=== PATIENT | female | born 1980 | race Caucasian/White ===

== ENCOUNTER 2016-07-12 15:20 | Outpatient (CLI) | payer OTHER ==
--- NOTE | 2016-07-12 22:13 | DIAGNOSTIC IMAGING REPORT ---
PROCEDURE: MG BILATERAL DIAGNOSTIC W/CAD INDICATION: BREAST MASS BILAT TECHNIQUE: Standard CC and MLO views of each breast. Spot compression in the CC and MLO projection of the left breast. Direct lateral left breast mammogram. CAD was used. The patient then went on to ultrasound where acevedo scale and color Doppler sonographic imaging of each breast was performed. COMPARISON: None. FINDINGS: Mammograms: Heterogeneous, moderately dense, patchy fibroglandular tissue is present bilaterally. No focal areas of density, architectural distortion, or suspicious clustered microcalcifications in the right breast. There is a patch of glandular tissue in the lateral left breast corresponding to the patient's palpable abnormality. With spot compression, there is no discrete mass. Normal glandular tissue is present. No areas of architectural distortion or suspicious microcalcifications. Ultrasound: Right breast: Dense glandular tissue in the 10 o'clock position is present. Scattered thin-walled cystic structures amidst dense glandular tissue with good through transmission are present in the 1 o'clock position measuring between five and 8 mm. No suspicious solid mass. Left breast: Very dense glandular tissue is seen corresponding to the area of concern in the upper outer left breast. No focal shadowing mass or dominant cyst. Closer to the nipple also in the upper outer left breast, there are multiple small, widely scattered cysts amidst dense glandular tissue. IMPRESSION: 1. Heterogeneous, dense, patchy glandular tissue bilaterally. No mammographic or sonographic abnormality suspicious for malignancy. 2. Widely scattered, thin-walled cysts throughout dense fibroglandular tissue consistent with fibrocystic breast disease. 3. The patient can begin yearly screening mammography at age 42. Until then, clinical follow-up only is necessary. Findings and recommendations were discussed with the patient. RESULT CODE: 2- Benign findings.
== END 2016-07-12 23:00 ==
LOC: MAM SRH 15:20
DX: N63 Unspecified lump in breast (principal)